=== PATIENT | female | born 1980 | race Caucasian/White ===

== ENCOUNTER 2024-11-16 21:50 | Emergency (ER) | payer BC, SELFPAY ==
--- OUTSIDE RECORDS SUMMARY | 2024-11-16 21:52 | XMS_ITS | Clinical Summary ---
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 45 tablet 3 12/09/2017 Active Active Problems Problem Noted Date Diagnosed Date Gestational diabetes mellitus (GDM) in [facility] 09/03/2017 Overview (09/03/2017): Declined 1hrGTT and wanted check glucometer only. Glucometer with elevated levels. 3hr GTT with only 1 value abnormal however glucometer testing at home show persistent fasting blood glucoses in the 95-100 range. care, subsequent in [facility] 07/06/2017 Overview (09/08/2017): Initial care established at 25 5/7 wks Declines all immunizations. Declined Tdap. Rubella borderline: declines MMR Needs Pap smear Declines GTT. Has glucometer and checking BS's which found to be elevated so patient agreed to 3hr test which had 3 normal values and only 1 high. However, continues to have elevated fasting glucoses so diagnosed with GDM. Met with diabetic education 09/07/17. GBS negative It's a girl! Component Latest Ref Rng & Units 09/03/2017 Culture No Group B Streptococcus isolated. Estimated Date of Delivery: 09/30/17 Patient's last menstrual period was 12/24/2016. Last Tdap- declined Last Flu vaccine- declined Allergies Allergen Reactions Independence Other - Describe In Comment Field Ears and eyes swell Obstetric History T2 L3 SAB0 TAB0 Ectopic0 Multiple0 Live Births1 # Outcome Date GA Lbr Luis/2nd Weight Sex Delivery Anes PTL Lv 4 Current 3 2014 F Name: Romulo 2 Term 2011 41w3d 4.04 kg (8 lb 14.5 oz) M Vag-Spont NONE Name: George 1 Term 2008 41w0d 3.771 kg (8 lb 5 oz) F Vag-Spont EPIDURAL VELIA Name: [place] Create lab flowsheet for OB labs- Component Latest Ref Rng & Units 06/22/2017 06/22/2017 06/22/2017 4:20 PM 4:20 PM 4:20 PM ANTIBODY SCREEN Negative Negative SPECIMEN EXPIRATION DATE/TIME 06/25/17 23:59 HEMOGLOBIN 12.0 - 16.0 g/dL 11.3 (L) MCV 80 - 100 fL 90 RUBELLA IGG ANTIBODY Equivocal 0.95 (L) HEMOGLOBIN A1C SCREENING <6.4 % 4.8 ABORH A Rh Positive HBSAG Nonreactive Nonreactive HEPATITIS C ANTIBODY Non-Reactive Non-Reactive HIV-1/HIV-2 ANTIBODY Non-Reactive Non-Reactive TREPONEMA PALLIDUM Negative Negative Past Medical History: Diagnosis Date No Significant Past Medical History Past Surgical History: Procedure Laterality Date wisdom teeth No data on file. 4th Problems (from 06/22/17 to present) No problems associated with this episode. MUSHTAQ Hallman.....07/07/2017 7:31 AM Late care 04/11/2014 Overview (06/01/2014): 1) Initial visit with OB education at 30 5/7 weeks. 2) Anatomy US unable to adequately visualize lateral ventricles, ventricular outflow tracts, face, cord insertion. Patient declined repeat evaluation. 3) Does not believe in immunizations, declined Tdap. Declined MMR . 4) GBS negative. Immunization deficiency 04/11/2014 Overview (04/11/2014): Rubella nonimmune. Declines. Does not do Iz. Resolved Problems Problem Noted Date Diagnosed Date Resolved Date care, subsequent 04/11/2014 07/06/2017 Family History Medical History Relation Name Comments Stroke Father 77yo Heart Disease Maternal Grandmother CHF Relation Name Status Comments Father Maternal Grandmother Social History Tobacco Use Types Packs/Day Years Used Date Smoking Tobacco: Never Smokeless Tobacco: Never Tobacco Cessation:Counseling Given: Yes Alcohol Use Standard Drinks/Week Comments No 0 (1 standard drink = 0.6 oz pur e alcohol) PHQ-2 Answer Date Recorded PHQ-2 Score 0 05/18/2018 Comments No Sex and Gender Information Value Date Recorded Sex Assigned at Not on file Legal Sex Female 1:09 PM SEASONER HAND Gender Identity Not on file Sexual Orientation Not on file Obstetrics History Para Term AB IAB SAB Ectopic Multiple Livin g Live Births 4 2 2 3 1 Date Outcome GA Total Labor Labor/2nd/3rd Weight Sex Type Anes PTL Velia A1 A5 Name Clin 2008 Term 41w 0d 3.77 kg (8 lb 5 oz) F Vag-S pont Epidur al Livin g [place] Delivery Location:[place] Comments:Started with watch dial stoner, head was transverse presentation and was transferred to hospital and had vaginal 2011 Term 41w 3d 4.04 kg (8 lb 14.5 oz) M Vag-S pont None Fernanda n Delivery Location:[facility] at center Comments:water b y watch dial stoner 2014 F Romulo Comments:System Genera janis. Please review and update details. Last Filed Vital Signs Vital Sign Reading Time Taken Comments Blood Pressure 117/82 02/01/2018 1:37 PM SEASONER HAND Pulse 62 02/01/2018 1:37 PM SEASONER HAND Temperature 36.8 C (98.3 F) 02/01/2018 1:37 PM SEASONER HAND Respiratory Rate - - Oxygen Saturation 98% 02/01/2018 1:37 PM SEASONER HAND Inhaled Oxygen Concentration - - Weight 76.9 kg (169 lb 9.6 oz) 02/01/2018 1:37 P M SEASONER HAND Height 156.8 cm (5' 1.73) 02/01/2018 1:37 PM CS T Body Mass Index 31.29 02/01/2018 1:37 PM SEASONER HAND Plan of Treatment Health Maintenance Due Date Last Done Comments Tetanus booster 1991 Hepatitis B series for 19+ ( 1 of 3 - 19+ 3-dose series) 1999 Depression screening for age 12+ 12/09/2018 12/09/2017, 11/10/2017, 07/22/2017 BMI (ht and wt on same day) for age 18+ 02/01/2019 02/01/2018, 11/10/2017 Pap test for age 21-65 12/09/2022 8, 12/09/2017, 08/29/2014 COVID-19 vaccine series ( - 2023- season) 2024 Influenza Vaccine (#1) 2024 RSV vaccine for adults or (1 - 1-dose 75+ series) 2055 HIV for age 15-65 Completed 06/22/2017, 04/07/2014 Hepatitis C screening for ag e 18-79 Completed 06/22/2017, 04/07/2014 Pneumococcal series for age 6-49 Aged Out No longer eligible b ased on patient's age to complete this topic Procedures Procedure Name Priority Date/Time Associated Diagnosis Comments PASSENGER VESSEL CHEF THIN PREP PAP SCREEN IMAGED Routine 12/09/2017 3:30 PM CDT Cervical cancer screening ANTI HIV 1/2 Routine 06/22/2017 4:20 PM CDT Encounter for supervision of normal first in second trimester (HC) ANTI HCV Routine 06/22/2017 4:20 PM CDT Encounter for supervision of normal first in second trimester (HC) from Last 3 Months or Most Recently Relevant to Health Maintenance Results * PASSENGER VESSEL CHEF THIN PREP PAP SCREEN IMAGED (12/09/2017 3:30 PM CDT) Case Report Gynecologic Cytology Report Case: [id number] Authorizing Provider: Estelle Yuen DO Collected: 12/09/2017 1530 Ordering Location: [facility] Received: 12/09/2017 1547 Clinic First Screen: Binh Sweeney Specimen: PASSENGER VESSEL CHEF ThinPrep Vial Screening, Cervical 12/20/2017 11:00 AM CDT [facility] INTERPRETATION/ RESULT NEGATIVE FOR INTRAEPITHELIAL LESION OR MALIGNANCY (NIL) (none) 12/20/2017 11:00 AM CDT [facility] at 1100 CDT SPECIMEN ADEQUACY Satisfactory for evaluation Endocervical component present 12/20/2017 11:00 AM CDT [facility] HPV REQUEST HPV and PAP 12/20/2017 11:00 AM CDT [facility] Date of LMP 12/20/2017 11:00 AM CDT [facility] Last Pap Date 08/29/14 12/20/2017 11:00 AM CDT [facility] Last Pap Result NIL 8 11:00 AM CDT [facility] Abnormal Pap or Dingle Bx in last 5 years No 12/20/2017 11:00 AM CDT [facility] Menstrual Status 12/20/2017 11:00 AM CDT [facility] Dingle Bx Done Today No 12/20/2017 11:00 AM T [facility] Additional Information None given 12/20/2017 11:00 AM [facility] Automated Review Successful 12/20/2017 11:00 AM T [facility] Comment:Specimen processed s uccessfully by automated price changer device, ThinPrep Imaging System, [employer] ANCILLARY TESTING PASSENGER VESSEL CHEF HPV Ordered, Please see separate report 12/20/2017 11:00 AM [facility] Note The pap test is a screening technique, not a diagnostic procedure. It is used primarily to screen for squamous cancers and precursor lesions. Published studies have shown that it is subject to both false negative and false positive results. The pap test should not be used as the sole means to diagnose or exclude pre-malignant and malignant lesions. Cytology is screened and interpreted at [facility], [facility] - [address], [place] [address] [facility] - [address]; [place] [address] and [facility] - [address]; [place] [address] and [facility] [address]; [place] [address] 12/20/2017 11:00 AM CDT [facility] Other (Cervical) Non-Blood / Unknown 12/09/2017 3:30 PM CDT 12/09/2017 3:46 PM CDT Estelle Yuen DO PATHOLOGY/CYTOLOGY Final R esult [facility] [address] [place] [address], [place] * ANTI HCV (06/22/2017 4:20 PM CDT) HEPATITIS C ANTIBODY Non-React connor Non-React connor 06/23/2017 2:27 PM CDT [facility] Comment:Antibodies to HCV no t detected; does not exclude the possibility of exposure to HCV. Blood BLOOD SPECIMEN / Unknown Venipuncture / Unknown 06/22/2017 4:20 PM CDT 06/22/2017 4:27 PM CDT Zoya RODRIGUEZ SEND OUTS Final R esult [facility] [address] [place] [address], [place] * ANTI HIV 1/2 (06/22/2017 4:20 PM CDT) HIV-1/HIV-2 ANTIBODY Non-Reacti ve Non-Reacti ve 06/23/2017 2:27 PM CDT [facility] Comment:HIV-1 p24 and HIV-1/ HIV-2 Ab not detected. Blood BLOOD SPECIMEN / Unknown Venipuncture / Unknown 06/22/2017 4:20 PM CDT 06/22/2017 4:27 PM CDT Zoya RODRIGUEZ SEND OUTS Final R esult [facility] 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
[2024-11-16 21:56] VITALS: BP 128/80; PULSE 74; RESP 18; TEMP 36.9; O2SAT 99; BMI 29.3
--- NOTE | 2024-11-16 22:19 | ED.EYEPROB ---
HPI - Eye Problem General Date Seen: 11/16/24 Chief complaint: Eye Problems Stated complaint: foreign body L eye Time Seen by Provider: 11/16/24 22:08 Source: patient Mode of arrival: ambulatory Limitations: no limitations History of Present Illness HPI Narrative: Patient is a 44-year-old female presenting to the emergency department for concern of a foreign body in her left eye. States today around 15:30 she was weeding her garden when she felt like she got something stuck in the eye. She tried to wash it out but still has the sensation that something is there. Has not had any visual changes. Does not were contacts. No previous eye issues. Denies any visual changes. No other concerns noted. Related Data Home Medications ?Medication ?Instructions ?Recorded ?Confirmed No Known Home Medications 11/16/24 11/16/24 Allergies Allergy/AdvReac Type Severity Reaction Status Date / Time No Known Drug Allergies Allergy Verified 11/16/24 21:58 Review of Systems Narrative: Pertinent systems reviewed and were negative unless stated in HPI Exam Narrative: Exam Narrative: Const: Well-nourished, Well-developed, in mild distress Eyes: PERRL, no conjunctival injection, and symmetrical lids, small corneal abrasion noted over the iris on fluorescein exam HENT: Atraumatic external nose and ears. Moist mucous membranes. MSK:Extremities w/o deformity, Normal Active ROM Skin: Warm, Dry. No rashes or lesions. Neuro: Normal Muscle tone, No focal neurological deficits. Psych: Awake, Alert, & Oriented x3. Appropriate mood and affect. Const: Vital Signs, click to edit/add: Vital Signs - 24 hr 11/16/24 21:56 Temperature 98.5 F Pulse Rate [Right Pulse Oximeter] 74 Respiratory Rate 18 Blood Pressure [Ri ght Upper Arm] 128/80 Pulse Oximetry 99 Oxygen Delivery Me thod Room Air Course Vital Signs Vital signs: Initial Vital Signs Temperature 98.5 F 11/16/24 21:56 Temperature Source Temporal Artery Scan 11/16/24 21:56 Pulse Rate 74 11/16/24 21:56 Respiratory Rate 18 11/16/24 21:56 Blood Pressure 128/80 11/16/24 21:56 Blood Pressure Mean 96 11/16/24 21:56 Blood Pressure Position Sitting 11/16/24 21:56 Pulse Oximetry 99 11/16/24 21:56 Oxygen Delivery Method Room Air 11/16/24 21:56 Vital Signs Temperature 98.5 F 11/16/24 21:56 Pulse Rate 74 11/16/24 21:56 Respiratory Rate 18 11/16/24 21:56 Blood Pressure 128/80 11/16/24 21:56 Pulse Oximetry 99 11/16/24 21:56 Oxygen Delivery Method Room Air 11/16/24 21:56 Temperature 98.5 F 11/16/24 21:56 Pulse Rate 74 11/16/24 21:56 Respiratory Rate 18 11/16/24 21:56 Blood Pressure 128/80 11/16/24 21:56 Pulse Oximetry 99 11/16/24 21:56 Oxygen Delivery Method Room Air 11/16/24 21:56 MDM - Eye Problem MDM Narrative Medical decision making narrative: Patient is a 44-year-old female presenting for left eye pain. Corneal abrasion was seen on exam. No obvious conjunctivitis. No foreign bodies noted under either lid. She does not were contacts are send her home with erythromycin ointment. Informed in follow-up with and I provider tomorrow morning if she still has the eye pain. Discharge Plan Discharge Clinical Impression: Corneal abrasion Qualifiers: Encounter type: initial encounter Laterality: left Qualified Code(s): S05.02XA - Injury of conjunctiva and corneal abrasion without foreign body, left eye, initial encounter Patient Disposition: Home, Self-Care Condition: Stable Instructions: Corneal Abrasion (DC) Additional Instructions: Using the mycin ointment 4 times a day for the next 3-5 days. Recommend following up with Optometry and/or Ophthalmology tomorrow. Return to emergency department for new or worsening symptoms. Make sure you do not were contacts until abrasion resolved or told to by an water conservation specialist. Prescriptions: No Action No Known Home Medications Follow Up/Referrals: Estelle Yuen DO [Primary Care Provider, Family Practice] Stand Alone Forms: [employer] Info Instructions
[2024-11-16 22:39] VITALS: BP 121/74; PULSE 70; RESP 18; TEMP 36.9; O2SAT 99
[2024-11-16 22:40] VITALS: BP 121/74; PULSE 70; RESP 18; TEMP 36.9
== END 2024-11-16 22:40 | disposition home or self-care (01) ==
LOC: ED 22:36
PROVIDERS: Emergency Provider Student in an Organized Health Care Education/Training Program; PCP Family Medicine
DX: S05.02XA Injury of conjunctiva and corneal abrasion without foreign body, left eye, initial encounter (principal); Y93.H2 Activity, gardening and landscaping
CPT/HCPCS: 99283; A9270